=== PATIENT | male | born 1965 | race Caucasian/White ===

== ENCOUNTER 2025-08-14 09:52 | Outpatient (CLI) | payer BC ==
--- NOTE | 2025-08-17 08:38 | RADIOLOGY REPORT ---
INDICATION: hematuria TECHNIQUE: Multiple real-time sonographic images of the kidneys and bladder were obtained. COMPARISON: None FINDINGS: The right kidney measures 11 cm in length. The right renal echogenicity, contour and cortical thickness are within normal limits. no hydronephrosis or large masses/calculi are seen. The left kidney measures 12 cm in length. The left renal echogenicity, contour, and cortical thickness are within normal limits. no hydronephrosis or large masses/calculi are seen. No large intraluminal masses are seen in the bladder. Post void residual of 51 cc. IMPRESSION: 1. Unremarkable examination. BROWN
== END 2025-08-14 23:59 | disposition home or self-care (01) ==
LOC: RAD 09:52
PROVIDERS: ATTEND Nurse Practitioner Family
DX: R31.9 Hematuria, unspecified (principal)
CPT/HCPCS: 76770